=== PATIENT | male | born 1955 ===

== ENCOUNTER 2017-05-02 11:27 | Inpatient (IN) | payer MEDICAID ==
[2017-05-02] MEDS ORDERED: Sodium Chloride 0.9% 1,000 ML IV ONE (14:58)
--- NOTE | 2017-05-02 14:58 | C.PDOC ---
History Of Present Illness PT HAS BEEN WAITING OUTSIDE IN WAITING AREA FOR 3HRS PRIOR TO MY INITIAL EVALUATION. 62 y/o male, with PMhx of "stomach ulcers," presents to the ER complaining of black stool which has been present for the past 2 days. Patient admits that he had similar episodes in the past " 10 yrs ago" when he was diagnosed with a "stomach ulcer." Otherwise, patient denies fever, chills, headache, dizziness, weakness, neck pain, throat pain, chest pain, SOB, palpitation, diaphoresis, vomiting, back pain, UTI sx, denies use anticoag medication. Ambulate to Ed for evaluation, not in any apparent distress. Time Seen by Provider: 05/02/17 14:57 Chief Complaint (Nursing): GI Problem History Per: Patient History/Exam Limitations: no limitations Onset/Duration Of Symptoms: Days Current Symptoms Are (Timing): Still Present Severity: Moderate Past Medical History Reviewed: Historical Data, Nursing Documentation, Vital Signs Vital Signs: Last Vital Signs Temp 97.8 F 05/05/17 07:00 Pulse 75 05/05/17 07:00 Resp 20 05/05/17 07:00 BP 147/66 05/05/17 07:00 Pulse Ox 97 05/05/17 07:00 - Medical History PMH: Gastrointestinal Ulcer Surgical History: No Surg Hx Family History: States: No Known Family Hx - Social History Hx Alcohol Use: Yes Hx Substance Use: No - Immunization History Hx Tetanus Toxoid Vaccination: No Hx Influenza Vaccination: No Hx Pneumococcal Vaccination: No Review Of Systems Except As Marked, All Systems Reviewed And Found Negative. Constitutional: Negative for: Fever, Sweats Cardiovascular: Negative for: Chest Pain Respiratory: Negative for: Shortness of Breath Gastrointestinal: Positive for: Melena. Negative for: Vomiting Physical Exam - Physical Exam Appears: Well, Non-toxic, No Acute Distress Skin: Normal Color, Warm Head: Normacephalic Eye(s): bilateral: PERRL Nose: No Flaring Oral Mucosa: Moist, No Drooling Tongue: Normal Appearing Lips: Normal Appearing Throat: No Erythema, No Drooling Neck: Supple Chest: Symmetrical Cardiovascular: Rhythm Regular, No Murmur, No JVD, Other ((-) carotid bruits B/L ) Respiratory: No Decreased Breath Sounds, No Accessory Muscle Use, No Rales, No Rhonchi, No Stridor, No Wheezing Gastrointestinal/Abdominal: Normal Exam, Soft, No Tenderness Rectal: Rectal Tone (normal ), Heme Positive Back: No CVA Tenderness Extremity: Normal ROM, No Pedal Edema, No Deformity Neurological/Psych: Oriented x3, Normal Speech, Normal Motor, Normal Sensation, Normal Reflexes ED Course And Treatment - Laboratory Results Result Diagrams: 05/03/17 00:09 05/02/17 15:24 Lab Interpretation: No Acute Changes O2 Sat by Pulse Oximetry: 98 (RA) Pulse Ox Interpretation: Normal Progress Note: Labs and CT-Abd/Pelv. ordered.Patient given Pepcid IV, Protonix IV, Zofran IV, Omnipaque PO, and IV fluids. Pt remained stable during th ED evaluation. Afebrile, hemodynamicaly stable. Non-toxic. Abd: benign, (-) guarding, (-) rebound. Blood work review, no acute findings. Imaging results review. case discussed with and admission arranged with GI consult . Disposition - Disposition Disposition: HOSPITALIZED Disposition Time: 18:41 Condition: STABLE - Clinical Impression Clinical Impression: Gastrointestinal hemorrhage - PA / WOOD BORER / Resident Statement MD/DO has reviewed & agrees with the documentation as recorded. - Scribe Statement The provider has reviewed the documentation as recorded by the Naty Fitzpatrick Provider Attestation All medical record entries made by the Preetibetienne were at my direction and personally dictated by me. I have reviewed the chart and agree that the record accurately reflects my personal performance of the history, physical exam, medical decision making, and the department course for this patient. I have also personally directed, reviewed, and agree with the discharge instructions and disposition.
[2017-05-02 15:28] LABS: BASO # 0.1 K/uL (0.0-0.2); BASO % 1.3 % (0.0-2.0); EOS # 0.5 K/uL (0.0-0.7); EOS % 5.6 % (0.0-4.0); HEMOGLOBIN 15.5 g/dL (12.0-18.0); LYMPH # 2.3 K/uL (1.0-4.3); LYMPH % 27.1 % (20.0-40.0); MEAN CELL VOLUME 88.4 fL (80.0-94.0); MEAN CORPUSCULAR HEMOGLOBIN 30.5 pg (27.0-31.0); MEAN CORPUSCULAR HGB CONC 34.5 g/dL (33.0-37.0); MEAN PLATELET VOLUME 8.3 fL (7.2-11.7); MONO # 0.6 K/uL (0.0-0.8); MONO % 6.7 % (0.0-10.0); NEUT # 5.1 K/uL (1.8-7.0); NEUT % 59.3 % (50.0-75.0); NRBC % 0.1 % (0.0-2.0); RBC 5.09 Mil/uL (4.40-5.90); RED CELL DISTRIBUTION WIDTH 13.2 % (11.5-14.5); WHITE BLOOD COUNT 8.5 K/uL (4.8-10.8)
[2017-05-02 15:35] LABS: PROTHROMBIN TIME 11.8 SECONDS (9.7-12.2)
[2017-05-02 15:43] LABS: ALB/GLOB RATIO 1.3 (1.0-2.1); ALBUMIN 4.3 g/dL (3.5-5.0); ALT/SGPT 27 U/L (21-72); AST/SGOT 22 U/L (17-59); BLOOD UREA NITROGEN 17 mg/dL (9-20); CALCIUM 9.3 mg/dl (8.6-10.4); GFR AFRICAN-AMERICAN > 60; GFR NON-AFRICAN AMERICAN > 60; LIPASE 74 U/L (23-300)
[2017-05-02] MEDS ORDERED: Sodium Chloride 0.9% 1,000 ML ONE (16:21)
[2017-05-02] MEDS ORDERED: Iohexol 240 (50 ml) PO ONE (16:25)
[2017-05-02 16:29] LABS: URINE BACTERIA OCC (<OCC); URINE BILIRUBIN NEGATIVE (NEGATIVE); URINE CLARITY Clear (Clear); URINE COLOR Yellow (YELLOW); URINE GLUCOSE (UA) 1+ mg/dL (Normal); URINE LEUKOCYTE ESTERASE NEG Leu/uL (Negative); URINE NITRATE NEGATIVE (NEGATIVE); URINE PROTEIN NEGATIVE (NEGATIVE)
[2017-05-02 16:30] LABS: URINE BLOOD TRACE (NEGATIVE)
[2017-05-02] MEDS ORDERED: Iohexol 240 (50 ml) ONE (16:59)
[2017-05-02] MEDS ORDERED: Iohexol 300 100 ML IJ ONE (19:23)
--- NOTE | 2017-05-02 19:23 | CP.PCM.HP ---
Past Patient History - Past Social History Smoking Status: Light Smoker < 10 Cigarettes Daily - GASTROINTESTINAL Hx Gastrointestinal Disorders: Yes - PSYCHIATRIC Hx Substance Use: No - SURGICAL HISTORY Hx Surgeries: No Meds Allergies/Adverse Reactions: Allergies Allergy/AdvReac Type Severity Reaction Status Date / Time No Known Allergies Allergy Verified 05/02/17 12:12 Physical Exam - Constitutional Appears: Well - Head Exam Head Exam: ATRAUMATIC, NORMAL INSPECTION, NORMOCEPHALIC - Eye Exam Eye Exam: EOMI, Normal appearance, PERRL Pupil Exam: NORMAL ACCOMODATION, PERRL - ENT Exam ENT Exam: Mucous Membranes Moist, Normal Exam - Neck Exam Neck exam: Positive for: Normal Inspection - Respiratory Exam Respiratory Exam: Decreased Breath Sounds - Cardiovascular Exam Cardiovascular Exam: REGULAR RHYTHM, +S1, +S2 - GI/Abdominal Exam GI & Abdominal Exam: Diminished Bowel Sounds, Soft - Rectal Exam Rectal Exam: Deferred Results - Vital Signs Recent Vital Signs: Last Vital Signs Temp 97.7 F 05/02/17 12:08 Pulse 67 05/02/17 12:08 Resp 18 05/02/17 12:08 BP 150/91 H 05/02/17 12:08 Pulse Ox 98 05/02/17 18:45 - Labs Result Diagrams: 05/02/17 15:24 05/02/17 15:24 Labs: Laboratory Results - last 24 hr 05/02/17 05/02/17 05/02/17 15:24 15:24 15:24 WBC 8.5 RBC 5.09 Hgb 15.5 Hct 45.0 MCV 88.4 MCH 30.5 MCHC 34.5 RDW 13.2 Plt Count 253 MPV 8.3 Neut % (Auto) 59.3 Lymph % (Auto) 27.1 [place] % (Auto) 6.7 Eos % (Auto) 5.6 H Baso % (Auto) 1.3 Neut # (Auto) 5.1 Lymph # (Auto) 2.3 [place] # (Auto) 0.6 Eos # (Auto) 0.5 Baso # (Auto) 0.1 PT 11.8 INR 1.0 APTT 31 Sodium 142 Potassium 3.9 Chloride 101 Carbon Dioxide 28 Anion Gap 16 BUN 17 Creatinine 0.7 L Est GFR ( Amer) > 60 Est GFR (Non-Af Amer) > 60 Random Glucose 99 Calcium 9.3 Total Bilirubin 0.7 AST 22 ALT 27 Alkaline Phosphatase 53 Total Protein 7.6 Albumin 4.3 Globulin 3.3 Albumin/Globulin Ratio 1.3 Lipase 74 Urine Color Urine Clarity Urine pH Ur Specific [place] Urine Protein Urine Glucose (UA) Urine Ketones Urine Blood Urine Nitrate Urine Bilirubin Urine Urobilinogen Ur Leukocyte Esterase Urine WBC (Auto) Urine RBC (Auto) Urine Bacteria Stool Occult Blood 05/02/17 05/02/17 15:33 16:10 WBC RBC Hgb Hct MCV MCH MCHC RDW Plt Count MPV Neut % (Auto) Lymph % (Auto) [place] % (Auto) Eos % (Auto) Baso % (Auto) Neut # (Auto) Lymph # (Auto) [place] # (Auto) Eos # (Auto) Baso # (Auto) PT INR APTT Sodium Potassium Chloride Carbon Dioxide Anion Gap BUN Creatinine Est GFR ( Amer) Est GFR (Non-Af Amer) Random Glucose Calcium Total Bilirubin AST ALT Alkaline Phosphatase Total Protein Albumin Globulin Albumin/Globulin Ratio Lipase Urine Color Yellow Urine Clarity Clear Urine pH 5.0 Ur Specific [place] 1.023 Urine Protein Negative Urine Glucose (UA) 1+ H Urine Ketones Negative Urine Blood Trace H Urine Nitrate Negative Urine Bilirubin Negative Urine Urobilinogen 2.0 Ur Leukocyte Esterase Neg Urine WBC (Auto) 3 Urine RBC (Auto) 3 Urine Bacteria Occ H Stool Occult Blood Positive H
--- NOTE | 2017-05-02 21:50 | CT ---
EXAM: CT Abdomen and Pelvis With Intravenous Contrast EXAM DATE/TIME: 05/02/2017 4:25 PM CLINICAL HISTORY: 62 years old, male; Pain and signs and symptoms; Mass, lump, or swelling; Abdominal pain; Tenderness; Left lower quadrant (llq); Additional info: Bloody stool TECHNIQUE: Axial computed tomography images of the abdomen and pelvis with intravenous contrast. All CT scans at this facility use one or more dose reduction techniques, viz.: automated exposure control; ma/kV adjustment per patient size (including targeted exams where dose is matched to indication; i.e. head); or iterative reconstruction technique. Coronal and sagittal reformatted images were created and reviewed. CONTRAST: 100 mL of omnipaque 300 administered intravenously. COMPARISON: No relevant prior studies available. FINDINGS: LOWER THORAX: No infiltrate seen in the lung bases. ABDOMEN: LIVER: Fatty infiltration of the liver. GALLBLADDER AND BILE DUCTS: No CT evidence of acute cholecystitis. No evidence of significant biliary ductal dilatation. PANCREAS: No CT evidence of acute pancreatitis. SPLEEN: No acute abnormality of the spleen identified. ADRENALS: No acute abnormality of the adrenal glands identified. KIDNEYS AND URETERS: Nonobstructing right renal stones, including a large 1 cm stone in the right renal pelvis. Incidental fluid density bilateral renal lesions, measuring less than 10 mm. Consistent with the [place] [employer]?s Incidental Findings Committee Report (J Am Twyla Radiol 2010): Unless the patient?s specific circumstances suggest otherwise, any cystic kidney lesion less than 1.0 cm not otherwise characterized in this report as possessing suspicious or indeterminate imaging features is/are highly likely to be benign and do not require follow-up imaging or biopsy. No evidence of hydroureteronephrosis. STOMACH AND BOWEL: Mild wall thickening of the sigmoid colon and rectum. This most likely represents pseudo-wall thickening due to incomplete colonic distension versus mild proctocolitis. Colonic diverticulosis, with no evidence of acute diverticulitis. Otherwise, no significant abnormality of the bowel is identified. No evidence of bowel obstruction. APPENDIX: Appendix is seen, and is within normal limits in appearance. PELVIS: BLADDER: Mild thickening of the bladder wall. REPRODUCTIVE: No acute abnormality of the reproductive organs is seen. ABDOMEN and PELVIS: INTRAPERITONEAL SPACE: No evidence of free intraperitoneal air or fluid. BONES/JOINTS: Degenerative disc disease at L4-5. There is a large posterior osteophyte at this level, likely causing mild spinal canal stenosis. SOFT TISSUES: No acute abnormality of the visualized soft tissues is seen. VASCULATURE: No evidence of abdominal aortic aneurysm. No evidence of periaortic hemorrhage. LYMPH NODES: No evidence of diffuse lymphadenopathy. IMPRESSION: - Underdistention versus mild wall thickening/proctocolitis involving the sigmoid colon and rectum. Recommend clinical correlation. - Mild bladder wall thickening. This is a nonspecific finding, but can be seen with cystitis. Recommend clinical correlation. - Otherwise, no evidence of significant acute process. - Colonic diverticulosis, without diverticulitis. - See above for remaining findings.
[2017-05-02] MEDS: Potassium Ch 20mEq in D5-1/2NS 1,000 ML IV SCH (23:32)
[2017-05-03 00:13] LABS: BASO # 0.1 K/uL (0.0-0.2); BASO % 0.9 % (0.0-2.0); EOS # 0.7 K/uL (0.0-0.7); EOS % 8.2 % (0.0-4.0); LYMPH # 2.5 K/uL (1.0-4.3); LYMPH % 30.1 % (20.0-40.0); MEAN CELL VOLUME 88.3 fL (80.0-94.0); MEAN CORPUSCULAR HEMOGLOBIN 30.9 pg (27.0-31.0); MEAN PLATELET VOLUME 8.3 fL (7.2-11.7); MONO # 0.5 K/uL (0.0-0.8); NEUT # 4.6 K/uL (1.8-7.0); NEUT % 54.8 % (50.0-75.0); RBC 4.52 Mil/uL (4.40-5.90); WHITE BLOOD COUNT 8.4 K/uL (4.8-10.8)
--- NOTE | 2017-05-03 10:18 | CP.PCM.CON ---
<Augusto Escobar - Last Filed: 05/03/17 11:08> History of Present Illness - History of Present Illness History of Present Illness: PGY5 GI Fellow Consult Note Patient is a 62 year old male with no significant PMHx who came to the ED with persistent dark stool. The patient suddenly developed cramping abdominal pain on Tuesday (4 days [employer]) in the LUQ. Tuesday, upon using the bathroom he noted a formed dark, black stool. He continued to pass 2-3 more black stool on Tuesday, each time becoming more loose in consistency. As symptoms continued Tuesday and Tuesday and he developed significant nausea, he decided to come to the ED for further evaluation. At this time, he states pain and nausea have resolved and he is eager to eat a regular meal. Denies any vomiting, hematemeis , fever, chills, sick contacts. Does admit to routine 2-3 times weekly use of Advil for various aches/pains. States that he had similar symptoms in the past and was told he had a stomach ulcer but has never undergone formal testing with EGD. Does recall taking a medication (unknown name) which made him feel better but he did not complete the course as he was directed. PMHx: Discussed with patient and he denies PSHx: Discussed with patient and he denies FHx: Father - prostate cancer, living 92yo Social: Denies tobacco or illicit drug use, occasional EtOH use Endo: No prior endoscopic evaluations 12 system ROS performed and negative except where stated. Past Patient History - Past Medical History & Family History Past Medical History?: Yes - Past Social History Smoking Status: Light Smoker < 10 Cigarettes Daily - CARDIAC Hx Cardiac Disorders: No - PULMONARY Hx Respiratory Disorders: No - NEUROLOGICAL Hx Neurological Disorder: No - HEENT Hx HEENT Problems: No - RENAL Other/Comment: Kidney Stones - ENDOCRINE/METABOLIC Hx Endocrine Disorders: No - HEMATOLOGICAL/ONCOLOGICAL Hx Blood Disorders: No - INTEGUMENTARY Hx Dermatological Problems: No - MUSCULOSKELETAL/RHEUMATOLOGICAL Hx Falls: No - GASTROINTESTINAL Hx Gastrointestinal Disorders: Yes Other/Comment: Gastrointestinal Ulcer. - GENITOURINARY/GYNECOLOGICAL Hx Genitourinary Disorders: No - PSYCHIATRIC Hx Substance Use: No - SURGICAL HISTORY Other/Comment: Rt. Hand Scar From Glass Fell on the Hand As Child When 5 Yrs Old. - ANESTHESIA Hx Anesthesia: Yes Hx Anesthesia Reactions: No Hx Malignant Hyperthermia: No Has any member of the family had a problem w/ anesthesia?: No Meds Allergies/Adverse Reactions: Allergies Allergy/AdvReac Type Severity Reaction Status Date / Time No Known Allergies Allergy Verified 05/02/17 12:12 - Medications Medications: Current Medications Potassium Chloride/Dextrose/Sod Cl (Potassium Chl 20 Meq In D5-1/2ns) 1,000 mls @ 60 mls/hr IV .[id number] [facility] Last Admin: 05/02/17 23:32 Dose: 60 mls/hr Pantoprazole Sodium (Protonix Inj) 40 mg IVP DAILY [facility] TO [facility] Pneumococcal Polyvalent Vaccine (Pneumovax 23 Vaccine) 0.5 ml IM .ONCE ONE Stop: 05/05/17 11:01 Physical Exam - Constitutional Appears: Non-toxic, No Acute Distress - Eye Exam Eye Exam: EOMI, PERRL - ENT Exam ENT Exam: Mucous Membranes Moist - Respiratory Exam Respiratory Exam: Clear to Auscultation Bilateral. absent: Rales, Rhonchi, Wheezes - Cardiovascular Exam Cardiovascular Exam: RRR, +S1, +S2 - GI/Abdominal Exam GI & Abdominal Exam: Normal Bowel Sounds, Soft. absent: Distended, Firm, Guarding, Mass, Organomegaly, Rigid, Tenderness - Rectal Exam Rectal Exam: NORMAL INSPECTION. absent: Black Stool, Bloody Stool, Hemorrhoids - Extremities Exam Extremities exam: Positive for: normal inspection. Negative for: pedal edema - Neurological Exam Neurological exam: Alert, Oriented x3 - Psychiatric Exam Psychiatric exam: Normal Affect, Normal Mood - Skin Skin Exam: Dry, Warm Results - Vital Signs Recent Vital Signs: Last Vital Signs Temp 97.8 F 05/03/17 08:07 Pulse 70 05/03/17 08:07 Resp 20 05/03/17 08:07 BP 142/91 H 05/03/17 08:07 Pulse Ox 95 05/03/17 08:07 - Labs Result Diagrams: 05/03/17 00:09 05/02/17 15:24 Labs: Laboratory Results - last 24 hr 05/02/17 05/02/17 05/02/17 15:24 15:24 15:24 WBC 8.5 RBC 5.09 Hgb 15.5 Hct 45.0 MCV 88.4 MCH 30.5 MCHC 34.5 RDW 13.2 Plt Count 253 MPV 8.3 Neut % (Auto) 59.3 Lymph % (Auto) 27.1 [place] % (Auto) 6.7 Eos % (Auto) 5.6 H Baso % (Auto) 1.3 Neut # (Auto) 5.1 Lymph # (Auto) 2.3 [place] # (Auto) 0.6 Eos # (Auto) 0.5 Baso # (Auto) 0.1 PT 11.8 INR 1.0 APTT 31 Sodium 142 Potassium 3.9 Chloride 101 Carbon Dioxide 28 Anion Gap 16 BUN 17 Creatinine 0.7 L Est GFR ( Amer) > 60 Est GFR (Non-Af Amer) > 60 Random Glucose 99 Calcium 9.3 Total Bilirubin 0.7 AST 22 ALT 27 Alkaline Phosphatase 53 Total Protein 7.6 Albumin 4.3 Globulin 3.3 Albumin/Globulin Ratio 1.3 Lipase 74 Urine Color Urine Clarity Urine pH Ur Specific [place] Urine Protein Urine Glucose (UA) Urine Ketones Urine Blood Urine Nitrate Urine Bilirubin Urine Urobilinogen Ur Leukocyte Esterase Urine WBC (Auto) Urine RBC (Auto) Urine Bacteria Stool Occult Blood 05/02/17 05/02/17 05/03/17 15:33 16:10 00:09 WBC 8.4 RBC 4.52 Hgb 14.0 Hct 39.9 MCV 88.3 MCH 30.9 MCHC 35.0 RDW 13.0 Plt Count 200 MPV 8.3 Neut % (Auto) 54.8 Lymph % (Auto) 30.1 [place] % (Auto) 6.0 Eos % (Auto) 8.2 H Baso % (Auto) 0.9 Neut # (Auto) 4.6 Lymph # (Auto) 2.5 [place] # (Auto) 0.5 Eos # (Auto) 0.7 Baso # (Auto) 0.1 PT INR APTT Sodium Potassium Chloride Carbon Dioxide Anion Gap BUN Creatinine Est GFR ( Amer) Est GFR (Non-Af Amer) Random Glucose Calcium Total Bilirubin AST ALT Alkaline Phosphatase Total Protein Albumin Globulin Albumin/Globulin Ratio Lipase Urine Color Yellow Urine Clarity Clear Urine pH 5.0 Ur Specific [place] 1.023 Urine Protein Negative Urine Glucose (UA) 1+ H Urine Ketones Negative Urine Blood Trace H Urine Nitrate Negative Urine Bilirubin Negative Urine Urobilinogen 2.0 Ur Leukocyte Esterase Neg Urine WBC (Auto) 3 Urine RBC (Auto) 3 Urine Bacteria Occ H Stool Occult Blood Positive H Assessment & Plan - Assessment and Plan (Free Text) Assessment: Patient is a 62 year old male with no significant PMHx who came to the ED with persistent dark stool -Abdominal pain with subjective episodes of melena Plan: -No evidence of melena on rectal examination -Patient asymptomatic at present and requesting full diet -Patient agreeable to EGD tomorrow -Continue with liquid diet today -NPO past MN -Avoid NSAIDs - Date & Time Date: 05/03/17 Time: 07:20 <Bhupinder Brandt - Last Filed: 05/03/17 15:05> Meds - Medications Medications: Current Medications Potassium Chloride/Dextrose/Sod Cl (Potassium Chl 20 Meq In D5-1/2ns) 1,000 mls @ 60 mls/hr IV .[id number] [facility] TO [facility] Last Admin: 05/02/17 23:32 Dose: 60 mls/hr Pantoprazole Sodium (Protonix Inj) 40 mg IVP DAILY [facility] Last Admin: 05/03/17 10:35 Dose: 40 mg Pneumococcal Polyvalent Vaccine (Pneumovax 23 Vaccine) 0.5 ml IM .ONCE ONE Stop: 05/05/17 11:01 Results - Vital Signs Recent Vital Signs: Last Vital Signs Temp 97.8 F 05/03/17 08:07 Pulse 70 05/03/17 08:07 Resp 20 05/03/17 08:07 BP 142/91 H 05/03/17 08:07 Pulse Ox 95 05/03/17 08:07 - Labs Result Diagrams: 05/03/17 00:09 05/02/17 15:24 Labs: Laboratory Results - last 24 hr 05/02/17 05/02/17 05/02/17 15:24 15:24 15:24 WBC 8.5 RBC 5.09 Hgb 15.5 Hct 45.0 MCV 88.4 MCH 30.5 MCHC 34.5 RDW 13.2 Plt Count 253 MPV 8.3 Neut % (Auto) 59.3 Lymph % (Auto) 27.1 [place] % (Auto) 6.7 Eos % (Auto) 5.6 H Baso % (Auto) 1.3 Neut # (Auto) 5.1 Lymph # (Auto) 2.3 [place] # (Auto) 0.6 Eos # (Auto) 0.5 Baso # (Auto) 0.1 PT 11.8 INR 1.0 APTT 31 Sodium 142 Potassium 3.9 Chloride 101 Carbon Dioxide 28 Anion Gap 16 BUN 17 Creatinine 0.7 L Est GFR ( Amer) > 60 Est GFR (Non-Af Amer) > 60 POC Glucose (mg/dL) Random Glucose 99 Calcium 9.3 Total Bilirubin 0.7 AST 22 ALT 27 Alkaline Phosphatase 53 Total Protein 7.6 Albumin 4.3 Globulin 3.3 Albumin/Globulin Ratio 1.3 Lipase 74 Urine Color Urine Clarity Urine pH Ur Specific [place] Urine Protein Urine Glucose (UA) Urine Ketones Urine Blood Urine Nitrate Urine Bilirubin Urine Urobilinogen Ur Leukocyte Esterase Urine WBC (Auto) Urine RBC (Auto) Urine Bacteria Stool Occult Blood 05/02/17 05/02/17 05/03/17 15:33 16:10 00:09 WBC 8.4 RBC 4.52 Hgb 14.0 Hct 39.9 MCV 88.3 MCH 30.9 MCHC 35.0 RDW 13.0 Plt Count 200 MPV 8.3 Neut % (Auto) 54.8 Lymph % (Auto) 30.1 [place] % (Auto) 6.0 Eos % (Auto) 8.2 H Baso % (Auto) 0.9 Neut # (Auto) 4.6 Lymph # (Auto) 2.5 [place] # (Auto) 0.5 Eos # (Auto) 0.7 Baso # (Auto) 0.1 PT INR APTT Sodium Potassium Chloride Carbon Dioxide Anion Gap BUN Creatinine Est GFR ( Amer) Est GFR (Non-Af Amer) POC Glucose (mg/dL) Random Glucose Calcium Total Bilirubin AST ALT Alkaline Phosphatase Total Protein Albumin Globulin Albumin/Globulin Ratio Lipase Urine Color Yellow Urine Clarity Clear Urine pH 5.0 Ur Specific [place] 1.023 Urine Protein Negative Urine Glucose (UA) 1+ H Urine Ketones Negative Urine Blood Trace H Urine Nitrate Negative Urine Bilirubin Negative Urine Urobilinogen 2.0 Ur Leukocyte Esterase Neg Urine WBC (Auto) 3 Urine RBC (Auto) 3 Urine Bacteria Occ H Stool Occult Blood Positive H 05/03/17 11:19 WBC RBC Hgb Hct MCV MCH MCHC RDW Plt Count MPV Neut % (Auto) Lymph % (Auto) [place] % (Auto) Eos % (Auto) Baso % (Auto) Neut # (Auto) Lymph # (Auto) [place] # (Auto) Eos # (Auto) Baso # (Auto) PT INR APTT Sodium Potassium Chloride Carbon Dioxide Anion Gap BUN Creatinine Est GFR ( Amer) Est GFR (Non-Af Amer) POC Glucose (mg/dL) 131 H Random Glucose Calcium Total Bilirubin AST ALT Alkaline Phosphatase Total Protein Albumin Globulin Albumin/Globulin Ratio Lipase Urine Color Urine Clarity Urine pH Ur Specific [place] Urine Protein Urine Glucose (UA) Urine Ketones Urine Blood Urine Nitrate Urine Bilirubin Urine Urobilinogen Ur Leukocyte Esterase Urine WBC (Auto) Urine RBC (Auto) Urine Bacteria Stool Occult Blood Attending/Attestation - Attestation I have personally seen and examined this patient.: Yes I have fully participated in the care of the patient.: Yes I have reviewed all pertinent clinical information: Yes Notes (Text): 05/03/17 15:01 I have seen and examined patient with GI fellow. Agree with above documentation with the following additions. In brief, this is a 62 year old male without significant past medical history who presents to hospital with complaint of dark colored stool for the past 3 days. Prior to this he was in usual state of health. He also reports associated LUQ/LLQ abdominal pain, 5/10 intensity during this time period associated with nausea. He otherwise denies vomiting, fever/chills, weight loss, or visible rectal bleeding. He does admit to intermittent NSAID use 3 times per week. No prior endoscopic evaluation. Abdominal pain Change in stool color - rectal exam performed today shows normal anal sphincter tone, no palpable lesions, no stool in rectal vault - Liquid diet as tolerated - H/H stable, continue to monitor - May continue with PPI therapy for time being - Will plan for EGD evaluation tomorrow for further evaluation, to rule out peptic ulcer disease - Patient would also benefit from colonoscopy for screening purposes which can be scheduled electively as outpatient - NSAID avoidance - NPO after midnight
--- NOTE | 2017-05-03 17:58 | CP.PCM.PN ---
Subjective - Date & Time of Evaluation Date of Evaluation: 05/03/17 Time of Evaluation: 10:30 - Subjective Subjective: clinically same Objective - Vital Signs/Intake and Output Vital Signs (last 24 hours): Temp Pulse Resp BP Pulse Ox 97.7 F 64 20 129/76 95 05/03/17 15:16 05/03/17 15:16 05/03/17 15:16 05/03/17 15:16 05/03/17 15:16 Intake and Output: 05/03/17 05/03/17 06:59 18:59 Intake Total 465 500 Balance 465 500 - Medications Medications: Current Medications Potassium Chloride/Dextrose/Sod Cl (Potassium Chl 20 Meq In D5-1/2ns) 1,000 mls @ 60 mls/hr IV .[id number] [facility] Last Admin: 05/02/17 23:32 Dose: 60 mls/hr Pantoprazole Sodium (Protonix Inj) 40 mg IVP DAILY [facility] Last Admin: 05/03/17 10:35 Dose: 40 mg Pneumococcal Polyvalent Vaccine (Pneumovax 23 Vaccine) 0.5 ml IM .ONCE ONE Stop: 05/05/17 11:01 - Labs Labs: 05/03/17 00:09 05/02/17 15:24 PT 11.8 SECONDS (9.7-12.2) 05/02/17 15:24 INR 1.0 05/02/17 15:24 APTT 31 SECONDS (21-34) 05/02/17 15:24 - Constitutional Appears: Well - Head Exam Head Exam: ATRAUMATIC, NORMAL INSPECTION, NORMOCEPHALIC - Eye Exam Eye Exam: EOMI, Normal appearance, PERRL Pupil Exam: NORMAL ACCOMODATION, PERRL - ENT Exam ENT Exam: Mucous Membranes Moist, Normal Exam - Neck Exam Neck Exam: Full ROM, Normal Inspection. absent: Lymphadenopathy - Respiratory Exam Respiratory Exam: Decreased Breath Sounds - Cardiovascular Exam Cardiovascular Exam: REGULAR RHYTHM, +S1, +S2 - GI/Abdominal Exam GI & Abdominal Exam: Soft, Diminished Bowel Sounds - Rectal Exam Rectal Exam: Deferred
[2017-05-04] MEDS: Potassium Ch 20mEq in D5-1/2NS 1,000 ML IV SCH ×2 (06:21→22:26)
[2017-05-04] MEDS ORDERED: Propofol 10 mg/ml Inj (20 ML) ONE ×2 (11:39→11:55)
[2017-05-04] MEDS ORDERED: Lactated Ringer's 1,000 ML IV ONE (11:42)
--- NOTE | 2017-05-04 17:50 | CP.PCM.PN ---
Subjective - Date & Time of Evaluation Date of Evaluation: 05/04/17 Time of Evaluation: 15:40 - Subjective Subjective: clinically same Objective - Vital Signs/Intake and Output Vital Signs (last 24 hours): Temp Pulse Resp BP Pulse Ox 98 F 68 18 131/74 98 05/04/17 15:30 05/04/17 15:30 05/04/17 15:30 05/04/17 15:30 05/04/17 15:30 Intake and Output: 05/04/17 05/04/17 06:59 18:59 Intake Total 580 530 Balance 580 530 - Medications Medications: Current Medications Potassium Chloride/Dextrose/Sod Cl (Potassium Chl 20 Meq In D5-1/2ns) 1,000 mls @ 60 mls/hr IV .[id number] [facility] Last Admin: 05/04/17 06:21 Dose: Not Given Pantoprazole Sodium (Protonix Ec Tab) 40 mg PO DAILY [facility] Pneumococcal Polyvalent Vaccine (Pneumovax 23 Vaccine) 0.5 ml IM .ONCE ONE Stop: 05/05/17 11:01 - Labs Labs: 05/03/17 00:09 05/02/17 15:24 PT 11.8 SECONDS (9.7-12.2) 05/02/17 15:24 INR 1.0 05/02/17 15:24 APTT 31 SECONDS (21-34) 05/02/17 15:24
[2017-05-05 01:38] VITALS: RESP 20
[2017-05-05 08:34] VITALS: BP 147/66; PULSE 75; TEMP 97.8
--- NOTE | 2017-05-05 09:44 | CP.PCM.PN ---
<Augusto Escobar - Last Filed: 05/05/17 09:40> Subjective - Date & Time of Evaluation Date of Evaluation: 05/05/17 Time of Evaluation: 07:10 - Subjective Subjective: PGY5 GI Fellow Progress Note Patient seen and examined bedside this morning. The patient states that he is feeling fine and has no complaints. No BM since Tuesday. Denies any abdominal pain, nausea, vomiting. Tolerating diet without issue. 12 system ROS performed and negative except where stated. Objective - Vital Signs/Intake and Output Vital Signs (last 24 hours): Temp Pulse Resp BP Pulse Ox 97.8 F 75 20 147/66 97 05/05/17 07:00 05/05/17 07:00 05/05/17 07:00 05/05/17 07:00 05/05/17 07:00 Intake and Output: 05/05/17 05/05/17 06:59 18:59 Intake Total 350 Balance 350 - Medications Medications: Current Medications Potassium Chloride/Dextrose/Sod Cl (Potassium Chl 20 Meq In D5-1/2ns) 1,000 mls @ 60 mls/hr IV .[id number] REPLACED BY [facility] Last Admin: 05/04/17 22:26 Dose: 60 mls/hr Pantoprazole Sodium (Protonix Ec Tab) 40 mg PO DAILY REPLACED BY [facility] Last Admin: 05/05/17 09:20 Dose: 40 mg Pneumococcal Polyvalent Vaccine (Pneumovax 23 Vaccine) 0.5 ml IM .ONCE ONE Stop: 05/05/17 11:01 - Labs Labs: 05/03/17 00:09 05/02/17 15:24 PT 11.8 SECONDS (9.7-12.2) 05/02/17 15:24 INR 1.0 05/02/17 15:24 APTT 31 SECONDS (21-34) 05/02/17 15:24 - Constitutional Appears: Non-toxic, No Acute Distress - Eye Exam Eye Exam: EOMI, PERRL - ENT Exam ENT Exam: Mucous Membranes Moist - Respiratory Exam Respiratory Exam: Clear to Ausculation Bilateral. absent: Rales, Rhonchi, Wheezes - Cardiovascular Exam Cardiovascular Exam: RRR, +S1, +S2 - GI/Abdominal Exam GI & Abdominal Exam: Soft, Normal Bowel Sounds. absent: Distended, Firm, Guarding, Rigid, Tenderness, Organomegaly - Extremities Exam Extremities Exam: Normal Inspection. absent: Pedal Edema - Neurological Exam Neurological Exam: Alert, Awake, Oriented x3 - Psychiatric Exam Psychiatric exam: Normal Affect, Normal Mood - Skin Skin Exam: Dry, Warm Assessment and Plan - Assessment and Plan (Free Text) Assessment: Patient is a 62 year old male with no significant PMHx who came to the ED with persistent dark stool -PUD - gastric antral ulcer - Ethan Class 2A Plan: -Suspect ulceration a result of NSAID use -Patient denies any complaints at present -STOP all NSAID use -Continue PPI 40mg PO QAMAC -Follow up in office in two weeks -Repeat EGD in 6-8 weeks to evaluate healing -Follow up gastric biopsies -Diet as tolerated -OK for D/C from GI standpoint <Bhupinder Brandt - Last Filed: 05/05/17 12:59> Objective - Vital Signs/Intake and Output Vital Signs (last 24 hours): Temp Pulse Resp BP Pulse Ox 97.8 F 75 20 147/66 97 05/05/17 07:00 05/05/17 07:00 05/05/17 07:00 05/05/17 07:00 05/05/17 07:00 Intake and Output: 05/05/17 05/05/17 06:59 18:59 Intake Total 350 350 Balance 350 350 - Labs Labs: 05/03/17 00:09 05/02/17 15:24 PT 11.8 SECONDS (9.7-12.2) 05/02/17 15:24 INR 1.0 05/02/17 15:24 APTT 31 SECONDS (21-34) 05/02/17 15:24 Attending/Attestation - Attestation I have personally seen and examined this patient.: Yes I have fully participated in the care of the patient.: Yes I have reviewed all pertinent clinical information, including history, physical exam and plan: Yes Notes (Text): 05/05/17 12:57 I have seen and examined patient with GI fellow. No acute events overnight, he is seen ambulating in room without difficulty. He denies abdominal pain, nausea , vomiting, fever/chills. No bowel movements overnight. Tolerating PO diet without difficulty. Review of vitals from today are normal. Abdominal pain - s/p EGD showing large gastric ulcer with visible vessel, s/p injection and BICAP therapy - Diet as tolerated - H/H stable, continue to monitor - Await EGD biopsy results - NSAID avoidance - Continue with PPI therapy - From GI standpoint, ok to discharge home with subsequent outpatient follow up. He will require repeat EGD within 2 months to ensure ulcer healing. Will sign off case, please reconsult as necessary, thank you.
[2017-05-05] MEDS ORDERED: Pantoprazole 40 mg EC Tab PO SCH (10:00)
[2017-05-05] MEDS ORDERED: Pneumococcal 23-Valent Vaccine IM ONE (11:00)
[2017-05-05] MEDS ORDERED: Influenza Vaccine 60 mcg/0.5 mL SYR (4YR UP) IM ONE (11:00)
--- NOTE | 2017-05-05 14:46 | CP.PCM.PN ---
Subjective - Date & Time of Evaluation Date of Evaluation: 05/05/17 Time of Evaluation: 10:50 - Subjective Subjective: Patient seen and examined, denies any abdominal pain, N/V/D , tolerating diet well s/p - EGD - Objective - Vital Signs/Intake and Output Vital Signs (last 24 hours): Temp Pulse Resp BP Pulse Ox 97.8 F 75 20 147/66 97 05/05/17 07:00 05/05/17 07:00 05/05/17 07:00 05/05/17 07:00 05/05/17 07:00 Intake and Output: 05/05/17 05/05/17 06:59 18:59 Intake Total 350 350 Balance 350 350 - Labs Labs: 05/03/17 00:09 05/02/17 15:24 PT 11.8 SECONDS (9.7-12.2) 05/02/17 15:24 INR 1.0 05/02/17 15:24 APTT 31 SECONDS (21-34) 05/02/17 15:24
[2017-05-06 01:35] VITALS: O2SAT 98
== END 2017-05-05 12:52 | disposition home or self-care (01) | DRG 175 ==
LOC: C.ER 11:27 → C.9E 18:39 → C.6T 23:04
PROVIDERS: ADMIT Internal Medicine Nephrology; ATTEND Internal Medicine Nephrology
PROC: 0DB68ZX Excision of Stomach, Via Natural or Artificial Opening Endoscopic, Diagnostic (ICD-10-PCS; principal; 2017-05-02)
DX: K25.4 Chronic or unspecified gastric ulcer with hemorrhage (principal); B96.81 Helicobacter pylori [H. pylori] as the cause of diseases classified elsewhere; Z87.891 Personal history of nicotine dependence